=== PATIENT | male | born 1965 | race Caucasian/White ===

== ENCOUNTER 2017-09-25 03:04 | Emergency (ER) | payer OTHER ==
[~2017-09-25] VITALS: Ht 175.3 cm; Wt 90.0 kg
[~2017-09-25 03:04] MED LIST: HYDR-3927
[2017-09-25] MEDS ORDERED: ACETAMINOPHEN 500MG TABLET PO ONE (04:30)
[2017-09-25] MEDS ORDERED: KETOROLAC 60MG/2ML VIAL IM ONE (04:30)
[2017-09-25 06:08] VITALS: BP 128/77
== END 2017-09-25 07:11 | disposition home or self-care (01) ==
LOC: ER 03:04
DX: M54.6 Pain in thoracic spine (principal); F12.10 Cannabis abuse, uncomplicated; F15.10 Other stimulant abuse, uncomplicated; Z88.0 Allergy status to penicillin; Z98.890 Other specified postprocedural states
CPT/HCPCS: 73030; 96372; 99284; J1885